=== PATIENT | male | born 1995 | race Caucasian/White ===

== ENCOUNTER 2019-07-19 10:04 | Emergency (ER) | payer BC ==
[~2019-07-19] VITALS: Ht 190.5 cm; Wt 68.0 kg
[~2019-07-19 10:04] MED LIST: CODACE30 PO; IBUP600 PO; METPHE18ER PO
[2019-07-19 10:55] LABS: BASOPHILS ABSOLUTE AUTO 0.03 K/mm3 (0.00-0.23); BASOPHILS PERCENT AUTO 0 % (0-2); EOSINOPHILS PERCENT AUTO 0 % (0-6); Hematocrit 46.5 % (37.0-53.0); Hemoglobin 16.7 g/dL (13.5-17.5); IMMATURE GRAN PERCENT AUTO 1 % (0-1); LYMPHOCYTES ABSOLUTE AUTO 2.11 K/mm3 (0.84-5.20); LYMPHOCYTES PERCENT AUTO 10 % (21-46); MONOCYTES ABSOLUTE AUTO 1.76 K/mm3 (0.16-1.47); MONOCYTES PERCENT AUTO 9 % (4-13); Mean Corpuscular HGB 30.4 pg (26.0-34.0); Mean Corpuscular HGB Conc 35.9 g/dL (31.5-36.5); Mean Corpuscular Volume 85 fL (80-100); Mean Platelet Volume 9.8 fL (9.1-12.4); NEUTROPHILS ABSOLUTE AUTO 16.67 K/mm3 (1.96-9.15); NEUTROPHILS PERCENT AUTO 81 % (41-73); Platelet Count 350 K/mm3 (150-400); RDW Coefficient Variation 11.5 % (11.7-14.2); RDW Standard Deviation 34.9 fL (35.1-46.3); White Blood Cell Count 20.67 K/mm3 (4.00-11.30)
[2019-07-19 10:59] LABS: Source, Urine Clean Catch
[2019-07-19 11:02] LABS: Bilirubin, Urine Neg (Neg); Blood, Urine 2+ (Neg); Glucose Qualitative, Urine Neg (Neg); Ketones, Urine 2+ (Neg); Leukocyte Esterase, Urine 1+ (Neg); Nitrite, Urine Neg (Neg); Protein, Urine 3+ (Neg); Specific Gravity, Urine 1.025 (1.003-1.022); Urobilinogen, Urine 1+ (Normal)
[2019-07-19 11:08] LABS: Appearance, Urine Cloudy (Clear); Color, Urine Yellow (P-Yellow)
[2019-07-19 11:11] LABS: Mucus Heavy (0-Heavy)
[2019-07-19 11:12] LABS: Bacteria Mod /hpf; Red Blood Cells, Urine 0-2 /hpf (0-2); Squamous Epithelial Cells Few /hpf (Few)
[2019-07-19 11:14] LABS: Alanine Aminotransfer (ALT/SGP 33 U/L (12-78); Albumin, Blood 5.7 g/dL (3.4-5.0); Albumin/Globulin Ratio 1.4 (0.8-1.8); Alk Phos 64 U/L (50-136); Anion Gap 13 mmol/L (6-16); Aspartate Aminotrans (AST/SGOT 23 U/L (12-37); Bilirubin, Total 1.2 mg/dL (0.1-1.0); Blood Urea Nitrogen 24 mg/dL (8-24); Bun/Creatinine Ratio 24.5 (12.0-20.0); CO2, Blood 25 mmol/L (21-32); Calcium, Blood 10.3 mg/dL (8.5-10.1); Chloride, Blood 96 mmol/L (98-108); Creatinine, Blood 0.98 mg/dL (0.60-1.20); Globulin, Blood 4.1 g/dL (2.2-4.0); Glomerular Filtration Rate >60 (60-); Glucose, Blood 129 mg/dL (70-99); Potassium, Blood 3.1 mmol/L (3.5-5.5); Sodium, Blood 134 mmol/L (136-145); Total Protein, Blood 9.8 g/dL (6.4-8.2)
[2019-07-19] MEDS ORDERED: OMEP20ER PO (12:46)
== END 2019-07-19 12:57 | disposition home or self-care (01) ==
LOC: ER 10:04
PROVIDERS: Emergency Medicine
DX: K30 Functional dyspepsia (principal); E44.0 Moderate protein-calorie malnutrition; Z68.1 Body mass index [BMI] 19.9 or less, adult; F17.210 Nicotine dependence, cigarettes, uncomplicated
CPT/HCPCS: 36415; 76705; 80053; 81001; 83690; 85025; 87086; 96361; 96374; 96375; 99284-25; C9113; J7120

== ENCOUNTER 2019-07-21 12:20 | Emergency (ER) | payer BC ==
[~2019-07-21] VITALS: Ht 190.5 cm; Wt 63.0 kg
[~2019-07-21 12:20] MED LIST changes: +OMEP20ER PO
[2019-07-21 13:07] LABS: BASOPHILS ABSOLUTE AUTO 0.03 K/mm3 (0.00-0.23); BASOPHILS PERCENT AUTO 0 % (0-2); EOSINOPHILS ABSOLUTE AUTO 0.01 K/mm3 (0.00-0.68); EOSINOPHILS PERCENT AUTO 0 % (0-6); Hematocrit 48.9 % (37.0-53.0); IMMATURE GRAN ABSOLUTE AUTO 0.08 K/mm3 (0.00-0.10); IMMATURE GRAN PERCENT AUTO 1 % (0-1); LYMPHOCYTES ABSOLUTE AUTO 1.38 K/mm3 (0.84-5.20); LYMPHOCYTES PERCENT AUTO 8 % (21-46); MONOCYTES ABSOLUTE AUTO 1.48 K/mm3 (0.16-1.47); MONOCYTES PERCENT AUTO 9 % (4-13); Mean Corpuscular HGB 30.4 pg (26.0-34.0); Mean Corpuscular HGB Conc 36.8 g/dL (31.5-36.5); Mean Corpuscular Volume 83 fL (80-100); Mean Platelet Volume 9.7 fL (9.1-12.4); NEUTROPHILS ABSOLUTE AUTO 13.98 K/mm3 (1.96-9.15); NEUTROPHILS PERCENT AUTO 82 % (41-73); Platelet Count 336 K/mm3 (150-400); RDW Coefficient Variation 11.2 % (11.7-14.2); RDW Standard Deviation 33.3 fL (35.1-46.3); Red Blood Cell Count 5.93 M/mm3 (4.30-5.90); White Blood Cell Count 16.96 K/mm3 (4.00-11.30)
[2019-07-21 13:27] LABS: Alanine Aminotransfer (ALT/SGP 41 U/L (12-78); Albumin, Blood 5.8 g/dL (3.4-5.0); Albumin/Globulin Ratio 1.3 (0.8-1.8); Alk Phos 69 U/L (50-136); Anion Gap 13 mmol/L (6-16); Aspartate Aminotrans (AST/SGOT 28 U/L (12-37); Bilirubin, Total 2.6 mg/dL (0.1-1.0); Blood Urea Nitrogen 44 mg/dL (8-24); Bun/Creatinine Ratio 29.7 (12.0-20.0); CO2, Blood 26 mmol/L (21-32); Calcium, Blood 10.2 mg/dL (8.5-10.1); Chloride, Blood 88 mmol/L (98-108); Creatinine, Blood 1.48 mg/dL (0.60-1.20); Globulin, Blood 4.5 g/dL (2.2-4.0); Glomerular Filtration Rate >60 (60-); Glucose, Blood 139 mg/dL (70-99); Potassium, Blood 2.9 mmol/L (3.5-5.5); Sodium, Blood 127 mmol/L (136-145); Total Protein, Blood 10.3 g/dL (6.4-8.2)
[2019-07-21 13:28] LABS: Source, Urine Clean Catch
[2019-07-21 13:40] LABS: Blood, Urine 2+ (Neg); Glucose Qualitative, Urine Neg (Neg); Ketones, Urine 2+ (Neg); Leukocyte Esterase, Urine 1+ (Neg); Nitrite, Urine Pos (Neg); Protein, Urine 4+ (Neg); Urobilinogen, Urine 1+ (Normal)
[2019-07-21 14:27] LABS: Appearance, Urine Hazy (Clear); Bilirubin, Urine 2+ (Neg); Color, Urine Amber (P-Yellow)
[2019-07-21 14:28] LABS: Hyaline Casts TNTC /lpf (0-2)
[2019-07-21 14:32] LABS: Bacteria Few /hpf; Red Blood Cells, Urine 0-2 /hpf (0-2); Squamous Epithelial Cells Rare /hpf (Few)
[2019-07-21] MEDS ORDERED: Phenergan25 MG PR (15:33)
[2019-07-21] MEDS ORDERED: KLOR-CON SPRINK8 MEQ PO (15:33)
[2019-07-21] MEDS ORDERED: ONDA4ODT SL (15:33)
== END 2019-07-21 15:54 | disposition home or self-care (01) ==
LOC: ER 12:20
PROVIDERS: Physician Assistant
DX: F12.988 Cannabis use, unspecified with other cannabis-induced disorder (principal); R11.15 Cyclical vomiting syndrome unrelated to migraine; E87.6 Hypokalemia; R10.9 Unspecified abdominal pain; F17.200 Nicotine dependence, unspecified, uncomplicated
CPT/HCPCS: 36415; 80053; 81001; 83690; 85025; 87086; 96361; 96374; 99284-25; J0780; J2405; J7030

== ENCOUNTER 2020-01-13 08:20 | Observation (INO) | payer BC ==
[~2020-01-13] VITALS: Ht 188 cm; Wt 72.6 kg
[~2020-01-13 08:20] MED LIST changes: +KLOR-CON SPRINK8 MEQ PO; +ONDA4ODT SL; +Phenergan25 MG PR
[2020-01-13 09:47] LABS: BASOPHILS ABSOLUTE AUTO 0.06 K/mm3 (0.00-0.23); BASOPHILS PERCENT AUTO 0 % (0-2); EOSINOPHILS PERCENT AUTO 0 % (0-6); Hematocrit 50.8 % (37.0-53.0); Hemoglobin 18.3 g/dL (13.5-17.5); IMMATURE GRAN ABSOLUTE AUTO 0.28 K/mm3 (0.00-0.10); IMMATURE GRAN PERCENT AUTO 1 % (0-1); LYMPHOCYTES ABSOLUTE AUTO 1.23 K/mm3 (0.84-5.20); LYMPHOCYTES PERCENT AUTO 4 % (21-46); MONOCYTES ABSOLUTE AUTO 2.09 K/mm3 (0.16-1.47); MONOCYTES PERCENT AUTO 7 % (4-13); Mean Corpuscular HGB 29.9 pg (26.0-34.0); Mean Corpuscular Volume 83 fL (80-100); NEUTROPHILS ABSOLUTE AUTO 26.87 K/mm3 (1.96-9.15); NEUTROPHILS PERCENT AUTO 88 % (41-73); Platelet Count 428 K/mm3 (150-400); RDW Coefficient Variation 11.9 % (11.7-14.2); RDW Standard Deviation 35.1 fL (35.1-46.3); Red Blood Cell Count 6.12 M/mm3 (4.30-5.90); White Blood Cell Count 30.53 K/mm3 (4.00-11.30)
[2020-01-13 10:07] LABS: Albumin, Blood 6.5 g/dL (3.4-5.0); Albumin/Globulin Ratio 1.3 (0.8-1.8); Bilirubin, Total 1.4 mg/dL (0.1-1.0); Bun/Creatinine Ratio 7.7 (12.0-20.0); Calcium, Blood 11.7 mg/dL (8.5-10.1); Creatinine, Blood 3.38 mg/dL (0.60-1.20); Globulin, Blood 5.1 g/dL (2.2-4.0); Potassium, Blood 3.8 mmol/L (3.5-5.5); Total Protein, Blood 11.6 g/dL (6.4-8.2)
--- NOTE | 2020-01-13 13:05 | NUR ---
PT ARRIVED TO ROOM 233 FROM ER DEPT PT IS BEING ADMITTED FOR ACUTE KIDNEY DISEASE R/T N/V PT STATED HE HAS BEEN SICK PAST 24 HRS NON STOP AND HAS NOT VOIDED BUT A DRIBBLE ONLY WHEN HE GETS IN THE SHOWER FOR THE PAIN TO HIS ABD PT ALSO STATED HE HAS BEEN HOT AND COLD TEMP IS 99.3 AND IS COLD AT THIS TIME
--- NOTE | 2020-01-13 17:52 | NUR ---
PT EATING CL DIET SITTING UP ON EDGE OF THE BED
--- NOTE | 2020-01-13 18:29 | NUR ---
pt having nausea after eating cl dinner stated he was hungry and thirsty zofran given pt also got into the shower
[2020-01-13 19:25] LABS: Source, Urine Clean Catch
[2020-01-13 19:33] LABS: Bilirubin, Urine Neg (Neg); Blood, Urine 1+ (Neg); Glucose Qualitative, Urine Neg (Neg); Ketones, Urine 1+ (Neg); Leukocyte Esterase, Urine Neg (Neg); Nitrite, Urine Neg (Neg); Protein, Urine 1+ (Neg); Urobilinogen, Urine NORM (Normal)
[2020-01-13 20:01] LABS: Appearance, Urine Clear (Clear); Color, Urine Yellow (P-Yellow)
[2020-01-13 20:02] LABS: Bacteria Not Seen /hpf; Red Blood Cells, Urine Not Seen /hpf (0-2); Squamous Epithelial Cells Few /hpf (Few); White Blood Cells, Urine Not Seen /hpf (0-5)
[2020-01-14 04:06] LABS: BASOPHILS ABSOLUTE AUTO 0.05 K/mm3 (0.00-0.23); BASOPHILS PERCENT AUTO 0 % (0-2); EOSINOPHILS ABSOLUTE AUTO 0.06 K/mm3 (0.00-0.68); EOSINOPHILS PERCENT AUTO 0 % (0-6); Hematocrit 36.1 % (37.0-53.0); Hemoglobin 12.5 g/dL (13.5-17.5); IMMATURE GRAN PERCENT AUTO 1 % (0-1); LYMPHOCYTES ABSOLUTE AUTO 3.15 K/mm3 (0.84-5.20); LYMPHOCYTES PERCENT AUTO 16 % (21-46); MONOCYTES ABSOLUTE AUTO 1.87 K/mm3 (0.16-1.47); MONOCYTES PERCENT AUTO 10 % (4-13); Mean Corpuscular HGB 30.1 pg (26.0-34.0); Mean Corpuscular HGB Conc 34.6 g/dL (31.5-36.5); Mean Platelet Volume 9.8 fL (9.1-12.4); NEUTROPHILS ABSOLUTE AUTO 14.14 K/mm3 (1.96-9.15); NEUTROPHILS PERCENT AUTO 73 % (41-73); Platelet Count 221 K/mm3 (150-400); RDW Coefficient Variation 12.1 % (11.7-14.2); RDW Standard Deviation 38.7 fL (35.1-46.3); Red Blood Cell Count 4.15 M/mm3 (4.30-5.90); White Blood Cell Count 19.37 K/mm3 (4.00-11.30)
[2020-01-14 04:11] LABS: Mean Corpuscular Volume 87 fL (80-100)
[2020-01-14 04:42] LABS: Anion Gap 7 mmol/L (6-16); Blood Urea Nitrogen 15 mg/dL (8-24); Bun/Creatinine Ratio 19.4 (12.0-20.0); CO2, Blood 25 mmol/L (21-32); Chloride, Blood 107 mmol/L (98-108); Creatinine, Blood 0.77 mg/dL (0.60-1.20); Glomerular Filtration Rate >60 (60-); Glucose, Blood 102 mg/dL (70-99); Phosphorus, Blood 2.5 mg/dL (2.5-4.9); Potassium, Blood 3.9 mmol/L (3.5-5.5); Sodium, Blood 139 mmol/L (136-145)
[2020-01-14 04:43] LABS: Calcium, Blood 8.3 mg/dL (8.5-10.1)
[2020-01-14 04:44] LABS: Albumin, Blood 3.9 g/dL (3.4-5.0)
--- NOTE | 2020-01-14 05:53 | NUR ---
SHIFT SUMMARY: LULU IS A&OX4. HE IS INDEPENDENT IN THE ROOM. HE REPORTS THAT THE HOT SHOWERS HELP WITH THE NAUSEA. IV PATENT. HE IS URINATING WITHOUT DIFFICULTY. HE IS AFEBRILE THIS MORNING. HE HAS RESTED INTERMITTENTLY DURING THE NIGHT. VSS, NO ACUTE CHANGES. HE STATES THAT HE WAS TO HAVE A SCOPE AND THE DOCTOR STOPPED HIS PRILOSEC SO THAT HE COULD BE TESTED FOR H-PYLORI DURING THE SCOPE. HE REPORTS THAT HE HAS NOT TAKEN PRILOSEC FOR A MONTH. HE IS HOPEFUL THAT THE SCOPE CAN BE COMPLETED DURING THIS HOSPITAL STAY. HE HAS NOT HAD ANY EPISODES OF EMESIS OR DIARRHEA SINCE BEING ADMITTED TO THE FLOOR. HE IS LYING IN BED WITH HIS CALL LIGHT IN REACH. WILL REPORT TO DAY SHIFT RN.
--- NOTE | 2020-01-14 13:57 | NUR ---
GI CONSULT DR ADDISON IN FOR CONSULT ON PT AT APROX 1300. PER DR ADDISON PT WILL NOTIFY THIS RN OF HIS DECISION TO HAVE EGD WHILE INPATIENT OR OUTPT. AT APROX 1330 PT CALLED THIS RN TO ROOM AND REQUESTED THAT I INFORM DR ADDISON THAT HE IS DECLINING EGD AT THIS TIME AND ALSO REQUESTS TO BE DISCHARGED HOME TODAY. DR MCARTHUR NOTIFIED THAT PT WOULD LIKE TO BE DC HOME, ORDER TO ADVANCE DIET TO FULL LIQUID AND IF PT TOLERATES HE CAN DISCHARGE HOME TODAY. PT DIET ADVANCED.
[2020-01-14] MEDS ORDERED: OMEP20ER PO (15:26)
[2020-01-14] MEDS ORDERED: ONDA4ODT PO (15:27)
--- NOTE | 2020-01-14 17:03 | NUR ---
DISCHARGE PT DISCHARGED HOME FROM UNIT AT APROX 1500 AFTER TOLERATING FULL LIQUID LUNCH WITH NO INCREASED N/V. PT GIVEN WRITTEN AND VERBAL DISCHARGE INSTRUCTIONS AND VERBALIZED UNDERSTANDING. IV REMOVED, PT TOLERATED WELL. REFUSED WHEELCHAIR ASSISTANCE TO PRIVATE VEHICLE.
== END 2020-01-14 15:56 | disposition home or self-care (01) ==
LOC: ER 08:20 → SURS 08:21 → MEDS 08:21 → SURS 08:22 → MEDS 11:53 → SURS 11:53 → ER 11:53 → SURS 12:57 → MEDS 12:57 → SURS 01-14 15:56
PROVIDERS: Nurse Practitioner; ADMIT Internal Medicine
DX: R11.2 Nausea with vomiting, unspecified (principal); D72.829 Elevated white blood cell count, unspecified; F12.20 Cannabis dependence, uncomplicated; N17.9 Acute kidney failure, unspecified; F17.210 Nicotine dependence, cigarettes, uncomplicated
CPT/HCPCS: 36415; 74176; 80053; 80069; 81001; 83605; 83690; 85025; 96361; 96374; 96376; 99285-25; J0696; J1650; J2405; J7030

== ENCOUNTER 2020-09-14 23:05 | Emergency (ER) | payer BC ==
[~2020-09-14] VITALS: Ht 190.5 cm; Wt 72.6 kg
[~2020-09-14 23:05] MED LIST changes: +ONDA4ODT PO
[2020-09-14 23:45] LABS: BASOPHILS ABSOLUTE AUTO 0.06 K/mm3 (0.00-0.23); BASOPHILS PERCENT AUTO 0 % (0-2); EOSINOPHILS PERCENT AUTO 0 % (0-6); Hematocrit 50.8 % (37.0-53.0); Hemoglobin 17.8 g/dL (13.5-17.5); IMMATURE GRAN ABSOLUTE AUTO 0.13 K/mm3 (0.00-0.10); IMMATURE GRAN PERCENT AUTO 1 % (0-1); LYMPHOCYTES ABSOLUTE AUTO 1.38 K/mm3 (0.84-5.20); LYMPHOCYTES PERCENT AUTO 6 % (21-46); MONOCYTES ABSOLUTE AUTO 1.14 K/mm3 (0.16-1.47); MONOCYTES PERCENT AUTO 5 % (4-13); Mean Corpuscular HGB 29.8 pg (26.0-34.0); Mean Corpuscular Volume 85 fL (80-100); Mean Platelet Volume 9.6 fL (9.1-12.4); NEUTROPHILS ABSOLUTE AUTO 19.16 K/mm3 (1.96-9.15); NEUTROPHILS PERCENT AUTO 88 % (41-73); Platelet Count 432 K/mm3 (150-400); RDW Coefficient Variation 11.3 % (11.7-14.2); RDW Standard Deviation 34.6 fL (35.1-46.3); Red Blood Cell Count 5.98 M/mm3 (4.30-5.90); White Blood Cell Count 21.87 K/mm3 (4.00-11.30)
[2020-09-14 23:57] LABS: Albumin, Blood 5.9 g/dL (3.4-5.0); Albumin/Globulin Ratio 1.3 (0.8-1.8); Bilirubin, Total 1.7 mg/dL (0.1-1.0); Bun/Creatinine Ratio 17.9 (12.0-20.0); Calcium, Blood 10.9 mg/dL (8.5-10.1); Creatinine, Blood 1.68 mg/dL (0.60-1.20); Globulin, Blood 4.7 g/dL (2.2-4.0); Total Protein, Blood 10.6 g/dL (6.4-8.2)
[2020-09-15] MEDS ORDERED: ONDA4ODT MM (01:21)
== END 2020-09-15 01:30 | disposition home or self-care (01) ==
LOC: ER 23:05
PROVIDERS: Student in an Organized Health Care Education/Training Program
DX: E86.0 Dehydration (principal); R11.2 Nausea with vomiting, unspecified; R10.84 Generalized abdominal pain; F17.210 Nicotine dependence, cigarettes, uncomplicated
CPT/HCPCS: 80053; 83690; 85025; 96361; 96374; 96375; 99284-25; J2405; J2550; J7120

== ENCOUNTER 2021-04-15 06:53 | Emergency (ER) | payer BC ==
[~2021-04-15] VITALS: Ht 190.5 cm; Wt 72.6 kg
[~2021-04-15 06:53] MED LIST changes: +ONDA4ODT MM
== END 2021-04-15 08:45 | disposition left against medical advice (07) ==
LOC: ER 06:53
DX: Z53.21 Procedure and treatment not carried out due to patient leaving prior to being seen by health care provider (principal)
CPT/HCPCS: 71045; 99284-25

== ENCOUNTER 2022-02-14 08:18 | Emergency (ER) | payer OTHER ==
[~2022-02-14] VITALS: Ht 190.5 cm; Wt 63.0 kg
[2022-02-14] MEDS ORDERED: OMEP20ER PO (08:31)
[2022-02-14 09:06] LABS: BASOPHILS ABSOLUTE AUTO 0.12 K/mm3 (0.00-0.23); BASOPHILS PERCENT AUTO 0 % (0-2); EOSINOPHILS ABSOLUTE AUTO 0.01 K/mm3 (0.00-0.68); EOSINOPHILS PERCENT AUTO 0 % (0-6); Hemoglobin 20.5 g/dL (13.5-17.5); IMMATURE GRAN ABSOLUTE AUTO 0.52 K/mm3 (0.00-0.10); IMMATURE GRAN PERCENT AUTO 2 % (0-1); LYMPHOCYTES ABSOLUTE AUTO 0.91 K/mm3 (0.84-5.20); LYMPHOCYTES PERCENT AUTO 3 % (21-46); MONOCYTES ABSOLUTE AUTO 2.11 K/mm3 (0.16-1.47); MONOCYTES PERCENT AUTO 6 % (4-13); Mean Corpuscular HGB 31.1 pg (26.0-34.0); Mean Corpuscular HGB Conc 35.3 g/dL (31.5-36.5); Mean Corpuscular Volume 88 fL (80-100); Mean Platelet Volume 9.8 fL (9.1-12.4); NEUTROPHILS ABSOLUTE AUTO 31.54 K/mm3 (1.96-9.15); NEUTROPHILS PERCENT AUTO 90 % (41-73); Platelet Count 407 K/mm3 (150-400); RDW Coefficient Variation 12.8 % (11.7-14.2); RDW Standard Deviation 41.1 fL (35.1-46.3); Red Blood Cell Count 6.59 M/mm3 (4.30-5.90); White Blood Cell Count 35.21 K/mm3 (4.00-11.30)
[2022-02-14 09:07] LABS: Albumin, Blood 5.8 g/dL (3.4-5.0); Bilirubin, Total 1.1 mg/dL (0.1-1.0); Bun/Creatinine Ratio 5.9 (12.0-20.0); Calcium, Blood 11.1 mg/dL (8.5-10.1); Creatinine, Blood 3.75 mg/dL (0.60-1.20); Globulin, Blood 5.9 g/dL (2.2-4.0); Total Protein, Blood 11.7 g/dL (6.4-8.2)
[2022-02-15] MEDS ORDERED: OMEP20ER PO (15:52)
[2022-02-15] MEDS ORDERED: ONDA4ODT MM (15:53)
== END 2022-02-15 10:03 | disposition left against medical advice (07) ==
LOC: ER 08:18
PROVIDERS: Student in an Organized Health Care Education/Training Program
DX: E87.2 Acidosis (principal); R73.9 Hyperglycemia, unspecified; N17.9 Acute kidney failure, unspecified; Z53.21 Procedure and treatment not carried out due to patient leaving prior to being seen by health care provider
CPT/HCPCS: 36415; 80053; 82010; 83036; 83690; 85025; 99283; J1815; J2405; J3480; J7050

== ENCOUNTER 2022-02-14 10:56 | Inpatient (IN) | payer OTHER ==
[~2022-02-14] VITALS: Ht 190.5 cm; Wt 66.0 kg
[2022-02-14 11:27] LABS: Base Excess Venous -4.1 mmol/L; Bicarbonate Venous 21.1 mmol/L (24.0-30.0); PCO2 Venous 41.8 mmHg (38-42); pH Blood Venous 7.33 (7.34-7.37)
[2022-02-14 11:48] LABS: EOSINOPHILS PERCENT AUTO 0 % (0-6); Hemoglobin 20.6 g/dL (13.5-17.5); IMMATURE GRAN ABSOLUTE AUTO 0.57 K/mm3 (0.00-0.10); IMMATURE GRAN PERCENT AUTO 2 % (0-1); LYMPHOCYTES ABSOLUTE AUTO 1.23 K/mm3 (0.84-5.20); LYMPHOCYTES PERCENT AUTO 3 % (21-46); MONOCYTES ABSOLUTE AUTO 2.48 K/mm3 (0.16-1.47); MONOCYTES PERCENT AUTO 6 % (4-13); Mean Corpuscular HGB 31.1 pg (26.0-34.0); Mean Corpuscular HGB Conc 34.8 g/dL (31.5-36.5); Mean Corpuscular Volume 89 fL (80-100); Mean Platelet Volume 9.4 fL (9.1-12.4); NEUTROPHILS ABSOLUTE AUTO 34.52 K/mm3 (1.96-9.15); NEUTROPHILS PERCENT AUTO 89 % (41-73); Platelet Count 402 K/mm3 (150-400); RDW Coefficient Variation 12.8 % (11.7-14.2); RDW Standard Deviation 41.7 fL (35.1-46.3); Red Blood Cell Count 6.63 M/mm3 (4.30-5.90); White Blood Cell Count 38.82 K/mm3 (4.00-11.30)
[2022-02-14 11:52] LABS: BASOPHILS ABSOLUTE AUTO 0.02 K/mm3 (0.00-0.23); BASOPHILS PERCENT AUTO 0 % (0-2); Hematocrit 59.2 % (37.0-53.0)
[2022-02-14 12:23] LABS: Magnesium, Blood 2.8 mg/dL (1.6-2.4)
[2022-02-14 12:24] LABS: Albumin, Blood 5.9 g/dL (3.4-5.0); Bilirubin, Direct 0.2 mg/dL (0.0-0.3); Bilirubin, Indirect 0.8 mg/dL (0.1-0.7); Calcium, Blood 11.3 mg/dL (8.5-10.1); Creatinine, Blood 4.2 mg/dL (0.60-1.20); Globulin, Blood 5.8 g/dL (2.2-4.0); Potassium, Blood 3.8 mmol/L (3.5-5.5); Total Protein, Blood 11.7 g/dL (6.4-8.2)
[2022-02-14 14:58] LABS: Creatine Kinase MB 3.2 ng/mL (0.0-3.6); Creatine Kinase MB Index 0.8 (0.0-4.0)
--- NOTE | 2022-02-14 17:53 | NUR ---
SHIFT SUMMARY: ASSUMED CARE OF PATIENT UPON HIS ARRIVAL FROM ED AT 1630. LULU IS A&O X 4, PLEASANT AND COOPERATIVE. DENIES PAIN AND NAUSEA AT THIS TIME. CHILDREN LIBRARIAN IN PLACE, SR 98. NS INFUSING PER ORDER. PATIENT EDUCATED ABOUT CALL LIGHT, FALL PREVENTION, USING URINAL TO VOID, ORIENTED TO ROOM/TV, AND THAT [facility] IS A NON SMOKING FACILITY AND THAT HE WILL NOT BE ALLOWED TO LEAVE THE UNIT NOR WOULD HIS IVF BE STOPPED FOR ANY REASON; HE VERBALIZED UNDERSTANDING. RESTING COMFORTABLY AT THIS TIME.
[2022-02-14 20:54] LABS: Source, Urine Clean Catch
[2022-02-14 21:02] LABS: Bilirubin, Urine Neg (Neg); Blood, Urine 4+ (Neg); Glucose Qualitative, Urine 2+ (Neg); Ketones, Urine Neg (Neg); Leukocyte Esterase, Urine Neg (Neg); Nitrite, Urine Neg (Neg); Protein, Urine 2+ (Neg); Urobilinogen, Urine NORM (Normal)
[2022-02-14 21:07] LABS: Appearance, Urine Clear (Clear); Color, Urine Yellow (P-Yellow)
[2022-02-14 21:11] LABS: Bacteria Rare /hpf; Red Blood Cells, Urine 0-2 /hpf (0-2); Squamous Epithelial Cells Few /hpf (Few); White Blood Cells, Urine Not Seen /hpf (0-5)
[2022-02-15 03:40] LABS: U Amphetamine Screen Not Detected; U Barbituate Screen Not Detected; U Benzodiazapine Screen Not Detected; U Buprenorphine Screen Not Detected; U Cannabinoids Screen DETECTED; U Cocaine Screen Not Detected; U Methadone Screen Not Detected; U Methamphetamine Screen Not Detected; U Opiates Screen Not Detected; U Oxycodone Screen Not Detected; U Phencyclidine Screen Not Detected; U Propoxyphene Screen Not Detected
[2022-02-15 05:13] LABS: BASOPHILS ABSOLUTE AUTO 0.04 K/mm3 (0.00-0.23); BASOPHILS PERCENT AUTO 0 % (0-2); EOSINOPHILS ABSOLUTE AUTO 0.05 K/mm3 (0.00-0.68); EOSINOPHILS PERCENT AUTO 0 % (0-6); Hematocrit 43.6 % (37.0-53.0); Hemoglobin 14.9 g/dL (13.5-17.5); IMMATURE GRAN ABSOLUTE AUTO 0.13 K/mm3 (0.00-0.10); IMMATURE GRAN PERCENT AUTO 1 % (0-1); LYMPHOCYTES ABSOLUTE AUTO 2.07 K/mm3 (0.84-5.20); LYMPHOCYTES PERCENT AUTO 9 % (21-46); MONOCYTES ABSOLUTE AUTO 2.11 K/mm3 (0.16-1.47); MONOCYTES PERCENT AUTO 9 % (4-13); Mean Corpuscular HGB 31.1 pg (26.0-34.0); Mean Corpuscular HGB Conc 34.2 g/dL (31.5-36.5); Mean Corpuscular Volume 91 fL (80-100); Mean Platelet Volume 9.6 fL (9.1-12.4); NEUTROPHILS ABSOLUTE AUTO 18.86 K/mm3 (1.96-9.15); NEUTROPHILS PERCENT AUTO 81 % (41-73); Platelet Count 241 K/mm3 (150-400); RDW Coefficient Variation 12.7 % (11.7-14.2); RDW Standard Deviation 42.4 fL (35.1-46.3); Red Blood Cell Count 4.79 M/mm3 (4.30-5.90); White Blood Cell Count 23.26 K/mm3 (4.00-11.30)
--- NOTE | 2022-02-15 05:14 | NUR ---
SHIT SUMMARY PT A/OX4, VERY PLEASANT AND INDEPENDENT IN ROOM. PER REPORT PT HAD NOT VOIDED DURING PRIOR SHIFT. BLADDER SCAN DONE SHOWED 569 ML AND PT ABLE TO VOID 550 ML. PT SINCE THEN HAS VOIDED AN ADDITIONAL 1,100 ML. PT REPORTS LAST DRINK WAS SATURDAY NIGHT. PT CIWA HAS BEEN ZERO AT THIS TIME. PT WITH NO COMPLAINS THIS SHIFT. TOOK A SHOWER AND WAS ABLE TO SLEEP THROUGHOUT THE NIGHT. URINE SAMPLE COLLECTED. VS STABLE OF NOTE BP 131/93.
[2022-02-15 05:40] LABS: Magnesium, Blood 2.7 mg/dL (1.6-2.4)
[2022-02-15 05:52] LABS: Bilirubin, Total 1.2 mg/dL (0.1-1.0); Bun/Creatinine Ratio 18.9 (12.0-20.0); Creatinine, Blood 1.22 mg/dL (0.60-1.20); Potassium, Blood 4.2 mmol/L (3.5-5.5)
[2022-02-15 05:56] LABS: Albumin, Blood 3.8 g/dL (3.4-5.0); Albumin/Globulin Ratio 1.1 (0.8-1.8); Globulin, Blood 3.4 g/dL (2.2-4.0); Total Protein, Blood 7.2 g/dL (6.4-8.2)
[2022-02-15 10:37] LABS: Albumin, Blood 3.8 g/dL (3.4-5.0); Anion Gap 6 mmol/L (6-16); Blood Urea Nitrogen 20 mg/dL (8-24); Bun/Creatinine Ratio 19.2 (12.0-20.0); CO2, Blood 28 mmol/L (21-32); Calcium, Blood 8.9 mg/dL (8.5-10.1); Chloride, Blood 102 mmol/L (98-108); Creatinine, Blood 1.04 mg/dL (0.60-1.20); Glomerular Filtration Rate 102 (60-); Glucose, Blood 108 mg/dL (70-99); Phosphorus, Blood 1.6 mg/dL (2.5-4.9); Potassium, Blood 4.3 mmol/L (3.5-5.5); Sodium, Blood 136 mmol/L (136-145)
[2022-02-15] MEDS ORDERED: OMEP20ER PO (15:52)
[2022-02-15] MEDS ORDERED: ONDA4ODT MM (15:53)
--- NOTE | 2022-02-15 19:19 | NUR ---
DISCHARGE SUMMARY: PT DISCHARGED HOME TODAY AFTER RECEIVING HIS IV INFUSION OF SODIUM PHOS. PT EDUCATED ON DISCHARGE INSTRUCTIONS, ENCOURAGED TO SEEK DRUG ADDICTION COUNCILING AND ENSURED PT HAD ADAPT RESOURCES AND PAPERWORK TO ESTABLISH WITH PCP. PT VU. PT AMBULATED TO POV, GAIT STEADY. PT BELONGINGS SENT WITH PT.
== END 2022-02-15 20:07 | disposition home or self-care (01) | DRG 683 ==
LOC: ER 10:56 → MEDS 14:11
PROVIDERS: Internal Medicine; Nurse Practitioner Acute Care; Student in an Organized Health Care Education/Training Program; ADMIT Hospitalist
DX: N17.9 Acute kidney failure, unspecified (principal); E87.2 Acidosis; E87.1 Hypo-osmolality and hyponatremia; R65.10 Systemic inflammatory response syndrome (SIRS) of non-infectious origin without acute organ dysfunction; E86.0 Dehydration; E83.52 Hypercalcemia; F10.20 Alcohol dependence, uncomplicated; E83.39 Other disorders of phosphorus metabolism; F12.10 Cannabis abuse, uncomplicated; F19.10 Other psychoactive substance abuse, uncomplicated; F17.210 Nicotine dependence, cigarettes, uncomplicated; Z79.899 Other long term (current) drug therapy
CPT/HCPCS: 36415; 71045; 74176; 80048; 80053; 80069; 80076; 81001; 82010; 82550; 82553; 82803; 82947; 83036; 83605; 83690; 83735; 84145; 84550; 85025; 87040; 93005; 93010; 99283; 99284-25; A9270; J1815; J2405; J2765; J3475; J3480; J7030; J7050; J7060; J7120

== ENCOUNTER 2022-08-09 21:29 | Emergency (ER) | payer OTHER ==
[~2022-08-09] VITALS: Ht 190.5 cm; Wt 72.6 kg
[~2022-08-09 21:29] MED LIST changes: +PROM12.5S PR
== END 2022-08-09 22:41 | disposition home or self-care (01) ==
LOC: ER 21:29
DX: R11.2 Nausea with vomiting, unspecified (principal); F17.210 Nicotine dependence, cigarettes, uncomplicated; Z79.899 Other long term (current) drug therapy
CPT/HCPCS: 99282

== ENCOUNTER 2022-08-11 17:11 | Emergency (ER) | payer OTHER ==
[~2022-08-11] VITALS: Ht 190.5 cm; Wt 65.8 kg
[2022-08-11 17:41] LABS: BASOPHILS ABSOLUTE AUTO 0.05 K/mm3 (0.00-0.23); BASOPHILS PERCENT AUTO 0 % (0-2); EOSINOPHILS ABSOLUTE AUTO 0.08 K/mm3 (0.00-0.68); EOSINOPHILS PERCENT AUTO 1 % (0-6); Hematocrit 46.4 % (37.0-53.0); Hemoglobin 17.2 g/dL (13.5-17.5); IMMATURE GRAN ABSOLUTE AUTO 0.04 K/mm3 (0.00-0.10); IMMATURE GRAN PERCENT AUTO 0 % (0-1); LYMPHOCYTES ABSOLUTE AUTO 1.93 K/mm3 (0.84-5.20); LYMPHOCYTES PERCENT AUTO 12 % (21-46); MONOCYTES ABSOLUTE AUTO 1.74 K/mm3 (0.16-1.47); MONOCYTES PERCENT AUTO 11 % (4-13); Mean Corpuscular HGB 30.9 pg (26.0-34.0); Mean Corpuscular HGB Conc 37.1 g/dL (31.5-36.5); Mean Corpuscular Volume 83 fL (80-100); Mean Platelet Volume 9.5 fL (9.1-12.4); NEUTROPHILS ABSOLUTE AUTO 11.98 K/mm3 (1.96-9.15); NEUTROPHILS PERCENT AUTO 76 % (41-73); Platelet Count 354 K/mm3 (150-400); RDW Coefficient Variation 10.9 % (11.7-14.2); Red Blood Cell Count 5.57 M/mm3 (4.30-5.90); White Blood Cell Count 15.82 K/mm3 (4.00-11.30)
[2022-08-11 17:59] LABS: Albumin/Globulin Ratio 1.1 (0.8-1.8); Bilirubin, Total 1.6 mg/dL (0.1-1.0); Bun/Creatinine Ratio 17.3 (12.0-20.0); Creatinine, Blood 0.93 mg/dL (0.60-1.20); Globulin, Blood 4.4 g/dL (2.2-4.0); Magnesium, Blood 2.3 mg/dL (1.6-2.4); Potassium, Blood 3.4 mmol/L (3.5-5.5); Total Protein, Blood 9.4 g/dL (6.4-8.2)
== END 2022-08-11 23:08 | disposition left against medical advice (07) ==
LOC: ER 17:11
PROVIDERS: Physician Assistant
DX: R11.2 Nausea with vomiting, unspecified (principal); Z79.899 Other long term (current) drug therapy; Z53.21 Procedure and treatment not carried out due to patient leaving prior to being seen by health care provider
CPT/HCPCS: 36415; 80053; 83735; 85025; J2405

== ENCOUNTER 2023-04-22 19:49 | Emergency (ER) | payer OTHER ==
[~2023-04-22] VITALS: Ht 190.5 cm; Wt 81.7 kg
[2023-04-22 19:59] VITALS: BP 139/88
== END 2023-04-22 20:39 | disposition home or self-care (01) ==
LOC: ER 19:49
DX: S01.01XA Laceration without foreign body of scalp, initial encounter (principal); S01.81XA Laceration without foreign body of other part of head, initial encounter; W22.8XXA Striking against or struck by other objects, initial encounter; F17.200 Nicotine dependence, unspecified, uncomplicated; F10.10 Alcohol abuse, uncomplicated
CPT/HCPCS: 99282